=== PATIENT | female | born 1950 | race Caucasian/White ===

== ENCOUNTER → 2017-10-24 12:21 | Outpatient (CLI) | payer MEDICARE, MEDICAID, SELFPAY ==
--- NOTE | 2017-10-24 13:00 | MRI_ITS ---
STUDY: MRI LUMBAR SPINE WITH AND WITHOUT CONTRAST REASON FOR EXAM: Female, 67 years old. stenosis, lbp, left buttocks pain, prior microdisectomy. TECHNIQUE: Standardized fat and water weighted pulse sequences were obtained in the sagittal and axial planes. 10 ml of Gadavist contrast material was administered for the contrast portion of the examination. COMPARISON: February 25, 2010 FINDINGS: T12-L1: There is mild disc space narrowing and endplate spondylosis. There is no significant disc herniation, spinal canal or foramina stenosis.. Normal lumbar lordosis. There is no substantial scoliosis. Normal conus medullaris that terminates at the L1/L2 L1-2: There is mild disc space narrowing and endplate spondylosis. There is no significant disc herniation, spinal canal or foramina stenosis.. L2-3: There is mild disc space narrowing and endplate spondylosis. There is a mild disc bulge and facet arthropathy with mild central canal and mild bilateral foraminal stenosis. L3-4: There is a moderate disc space narrowing and endplate spondylosis. There is moderate disc osteophyte complex asymmetric to the left with moderate left foraminal stenosis. There is facet arthropathy with mild central canal stenosis. There is mild right foraminal stenosis. Findings are slightly increased since the prior examination L4-5: There is moderate disc space narrowing and endplate spondylosis. There is a moderate disc osteophyte complex and facet arthropathy with mild central canal, mild right and moderate left foraminal stenosis. There is a decompression laminectomy with improved central canal patency. L5-S1: There is moderate disc space narrowing and endplate spondylosis. There is a moderate disc osteophyte complex and facet arthropathy with mild central canal stenosis. There is mild bilateral foraminal stenosis. There is a left hemilaminotomy and epidural fibrosis. There is new superiorly directed left paracentral disc extrusion (0.8 x 0.8 x 1.6 cm) with severe left lateral recess narrowing MRI/Spine Lumbar W/WO Contrast IMPRESSION: L3/L4: Moderate left foraminal stenosis. L4/L5: Moderate left foraminal stenosis. Decompression laminectomy. L5/S1: Left paracentral extrusion with severe left lateral recess narrowing. Postoperative changes. Electronically Signed: Jose Scott MD at 14:01 EDT Tel , Service support ,
== END ==
PROVIDERS: Family Provider Family Medicine; PCP Family Medicine; Visit Provider Nurse Practitioner Acute Care
DX: M48.062 Spinal stenosis, lumbar region with neurogenic claudication (principal); Z98.1 Arthrodesis status
CPT/HCPCS: 72158; A9585

== ENCOUNTER → 2018-01-19 13:42 | Outpatient (CLI) | payer MEDICARE, SELFPAY ==
--- NOTE | 2018-01-19 13:47 | ECHOL_ITS ---
Version 2 Reason For Study: Pericardial Effusion Procedure This was a limited 2D transthoracic echocardiogram. Exam performed in department. Left Ventricle Normal LV size. Left ventricular systolic function is normal. The estimated ejection fraction is 55 %. No regional wall motion abnormalities noted. Atria Normal left atrium. Mitral Valve Normal mitral valve. Pericardium/Pleural Small pericardial effusion. MMode/2D Measurements & Calculations LVIDd: 4.4 cm IVSd: 1.0 cm LVAd ap4: 25.4 cm2 LVIDs: 3.5 cm LVPWd: 0.92 cm EDV(MOD-sp4): 76.4 ml FS: 19.6 % EDV(sp4-el): 79.1 ml LVAs ap4: 17.0 cm2 ESV(MOD-sp4): 37.5 ml ESV(sp4-el): 39.4 ml EF(MOD-sp4): 50.9 % EF(sp4-el): 50.2 % SV(MOD-sp4): 38.8 ml SV(sp4-el): 39.7 ml Interpretation Summary Normal LV size. Left ventricular systolic function is normal. The estimated ejection fraction is 55 %. Small pericardial effusion. Compared to the previous the effusion is less. No tamponade noted Ordering Physician: Lázaro Yee Referring Physician: Lázaro Yee Performed By: Lucio Day RCS
== END ==
PROVIDERS: Family Provider Family Medicine; PCP Family Medicine
DX: I31.3 Pericardial effusion (noninflammatory) (principal)
CPT/HCPCS: 93308

== ENCOUNTER → 2018-11-12 13:41 | Outpatient (CLI) | payer MEDICARE, SELFPAY ==
--- NOTE | 2018-11-12 13:47 | BI_ITS ---
MAMMOGRAPHY - BILATERAL SCREENING 3-D TOMOSYNTHESIS REASON FOR EXAM: Female, 68 years old. Bilateral Screening 3-D tomosynthesis PERTINENT HISTORY: 30 pound weight gain since last exam. No significant family history.. TECHNIQUE: 2-D mammograms and 3-D Tomosynthesis of the breast (s) were performed. CAD was performed. COMPARISON: October 25, 2016. FINDINGS: The breast composition is almost entirely fat. Scattered benign calcifications are seen. No dense spiculated masses or suspicious microcalcifications are identified. No architectural distortion is identified. There is no skin thickening or retraction. There are a few, scattered, typically benign appearing calcifications. There is a 8 mm, reniform, well-circumscribed nodule within the very deep upper left breast seen only on the MLO views. This finding demonstrates a lucent/fatty hilum. This finding is therefore most compatible with a typically benign appearing intramammary lymph node. There has been no significant change since the prior study. BI/SCREENING MAMM (CAD), BILAT IMPRESSION: No mammographic signs of malignancy. Routine yearly mammograms recommended. ASSESSMENT CATEGORY: BIRADS Category 2: Benign. A letter regarding these results will be sent to the patient by the facility within 30 days. FOLLOW UP RECOMMENDATION: Yearly follow up mammogram recommended. (A) Approximately 10% of breast cancers are not detected by mammography. A normal mammogram should not delay biopsy of a clinically suspicious abnormality. Electronically Signed: Jj Sanchez MD at 16:09 EDT , Service support ,
== END ==
PROVIDERS: Family Provider Family Medicine; PCP Family Medicine; Referring Provider Family Medicine; Visit Provider Family Medicine
DX: Z12.31 Encounter for screening mammogram for malignant neoplasm of breast (principal)
CPT/HCPCS: 77063; 77067

== ENCOUNTER → 2019-01-22 10:34 | Outpatient (CLI) | payer MEDICARE, SELFPAY ==
--- NOTE | 2019-01-22 10:42 | MRI_ITS ---
HISTORY: HNP, LOW BACK PAIN X 3 YRS, H/O PRIOR LAMINECTOMY AND FUSION EXAM/TECHNIQUE: MR Spine Lumbar W/O Contrast: 1.5 Gianna. Multiplanar, multisequence. COMPARISON: 10/24/17 MRI lumbar spine. FINDINGS: # of images incl. paperwork: 131 Alignment anatomic. No fracture or acute signal changes in the vertebrae. Status post interval posterior fusion at L4-5 and L5-S1. Laminectomies at these levels again demonstrated. Conus terminates at the level of the L2 upper endplate with normal contour and signal. Thecal sac terminates at the level of the inferior aspect of S1. Disc degeneration from L3-S1 again demonstrated with mild degenerative endplate irregularity and signal changes. At L1-2 there is no significant narrowing. At L2-3, prominent epidural fat and moderate bilateral facet degeneration cause only mild narrowing of the spinal canal and bilateral foramina. At L3-4, vertebral body osteophytes and small diffuse disc bulge cause mild narrowing of the right foramen. No significant narrowing of the spinal canal or left foramen. At L4-5, the spinal canal is decompressed via laminectomy. No significant foraminal narrowing. At L5-S1, left paracentral vertebral body osteophyte mildly narrows the left subarticular zone, abutting the traversing left S1 nerve root. Only mild bilateral foraminal narrowing. The left-sided disc extrusion seen at this level on the previous study is no longer evident and has either been reabsorbed or resected. MRI/Spine Lumbar (Routine) IMPRESSION: Degenerative and postoperative changes as above. No high-grade narrowing or definite etiology for radiculopathy identified. The left-sided disc extrusion at L5-S1 is no longer evident, either resected or resorbed. at 1213 Reported and signed by: Rome Bocanegra MD Electronically Signed: Rome Bocanegra, at 12:12 EDT Tel , Service support ,
== END ==
PROVIDERS: Family Provider Family Medicine; PCP Family Medicine; Referring Provider Nurse Practitioner Acute Care; Visit Provider Nurse Practitioner Acute Care
DX: M51.26 Other intervertebral disc displacement, lumbar region (principal)
CPT/HCPCS: 72148

== ENCOUNTER → 2019-01-23 14:46 | Outpatient (CLI) | payer MEDICARE, SELFPAY ==
[2019-01-23 11:52] VITALS: BMI 40.9
[2019-01-23 15:41] LABS: Anion Gap 8 (5-15); BUN 10 mg/dL (7-18); BUN/Creat Ratio 9.2 RATIO (10-20); Calcium,Total 9.4 mg/dL (8.5-10.1); Chloride 106 mmol/L (98-107); Creatinine, Serum 1.09 mg/dL (0.55-1.02); EST Glomerular Filtration Rate 53 mL/min (>60); Est Glom Filt Rate - Afr Amer 65 mL/min (>60); Glucose 101 mg/dL (74-106); Sodium Level 143 mmol/L (136-145); T4 Total, Thyroxin 6.5 ug/dL (4.8-13.9); Thyroid Stim Hormone (TSH) 1.01 uIU/mL (0.358-3.74)
== END ==
PROVIDERS: Family Provider Family Medicine; PCP Family Medicine; Referring Provider Internal Medicine Cardiovascular Disease; Visit Provider Internal Medicine Cardiovascular Disease
DX: I31.3 Pericardial effusion (noninflammatory) (principal)
CPT/HCPCS: 36415; 80048; 84436; 84443

== ENCOUNTER → 2019-02-26 12:46 | Outpatient (CLI) | payer MEDICARE, SELFPAY ==
[2019-01-23 11:52] VITALS: BMI 40.9
--- NOTE | 2019-02-26 12:47 | ECHOCS_ITS ---
Reason For Study: PERICARDIAL EFFUSION Procedure This was a 2D Doppler, Color Flow transthoracic echocardiogram. The study was technically difficult. Contrast injection was performed. Exam performed in department. Left Ventricle Normal LV size. Left ventricular systolic function is normal. The estimated ejection fraction is 65 %. Stage 1 diastolic dysfunction. No regional wall motion abnormalities noted. Right Ventricle Normal RV size. Normal systolic function. Atria Normal left atrium. Normal right atrium. Mitral Valve Normal mitral valve. Tricuspid Valve Normal tricuspid valve. Aortic Valve Normal aortic valve. Pulmonic Valve The pulmonic valve is not well visualized. Great Vessels Normal aortic root. The pulmonary artery is normal size. Normal inferior vena cava. Pericardium/Pleural No pericardial effusion. Medication 22 gauge I.V. with prn adaptor inserted into right arm. Diluted definity 2ml given slow IV push to enhance endocardial definition. MMode/2D Measurements & Calculations LVIDd: 4.1 cm IVSd: 1.1 cm Ao root diam: 3.1 cm LVIDs: 2.9 cm LVPWd: 1.0 cm RVDd: 2.5 cm FS: 28.4 % LAV(MOD-bp): 42.9 ml LVAd ap4: 26.4 cm2 SV(MOD-sp4): 45.2 ml LAV(MOD-bp) Indexed: 20.5 ml/m2 EDV(MOD-sp4): 75.5 ml LAV(MOD-sp2): 50.6 ml EDV(sp4-el): 78.7 ml LAV(MOD-sp4): 37.2 ml LVAs ap4: 15.3 cm2 ESV(MOD-sp4): 30.3 ml ESV(sp4-el): 31.8 ml EF(MOD-sp4): 59.9 % EF(sp4-el): 59.5 % SV(sp4-el): 46.8 ml LA A4 area: 16.1 cm2 LA dimension(2D): 3.8 cm RA A4 area: 13.7 cm2 Time Measurements MV dec time: 0.20 sec Doppler Measurements & Calculations MV E max martin: 98.9 cm/sec Lat Peak E' Martin: 6.3 cm/sec Med Peak E' Martin: 6.6 cm/sec MV A max martin: 114.0 cm/sec E/E' lat: 15.8 E/E' med: 15.0 MV E/A: 0.87 Ao V2 max: 146.2 cm/sec LV V1 max: 92.9 cm/sec PA V2 max: 78.8 cm/sec Ao max P.6 mmHg LV V1 max P.5 mmHg TR max martin: 260.7 cm/sec TR max P.2 mmHg Interpretation Summary Normal LV size. Left ventricular systolic function is normal. The estimated ejection fraction is 65 %. Stage 1 diastolic dysfunction. Structurally normal valves. Contrast injection was performed. Ordering Physician: Cornelius Santos Referring Physician: DANIKA PEÑA Performed By: Nadia Munoz, SLOANE, RVT
== END ==
PROVIDERS: Family Provider Family Medicine; PCP Family Medicine; Referring Provider Internal Medicine Cardiovascular Disease; Visit Provider Internal Medicine Cardiovascular Disease
DX: I31.3 Pericardial effusion (noninflammatory) (principal)
CPT/HCPCS: 93306; Q9957; A4216; C8929

== ENCOUNTER → 2019-09-10 06:05 | Outpatient (CLI) | payer MEDICARE, MEDICAID, SELFPAY ==
[2019-01-23 11:52] VITALS: BMI 40.9
--- NOTE | 2019-09-10 18:42 | STRESSREP ---
Stress Test Report Date: 09-10-2019 Procedure: Pharmacologic stress nuclear imaging study Indications: Shortness of breath/dyspnea; preoperative cardiovascular evaluation Consent: Per the patient Procedure: The patient underwent pharmacologic (Regadenoson) evaluation with a peak heart rate of 99 beats per minute (64 %predicted maximal heart rate) and a peak blood pressure of 122/84 mmHg. The baseline ECG demonstrated sinus rhythm. The peak pharmacologic ECG demonstrated no obvious ECG changes. There were no cardiac dysrhythmias pretest, during pharmacologic infusion, or recovery. There was no complaint of chest discomfort during pharmacologic infusion or recovery. The examination was discontinued secondary to completion of protocol. Impression: 1. Pharmacologic (Regadenoson) evaluation 2. Peak pharmacologic ECG with no obvious ECG changes. 3. There were no cardiac dysrhythmias pretest, during pharmacologic infusion, or recovery. 4. Nuclear images pending Myocardial perfusion imaging study: Technique: The patient was injected with 14.8 millicuries of technetium 99m Cardiolite and subsequently rest SPECT Cardiolite nuclear imaging was obtained in the horizontal long, vertical long, and short axis views. The patient underwent pharmacologic (Regadenoson) evaluation with a peak heart rate of 99 beats per minute (64 % percent predicted maximal heart rate) and a peak blood pressure of 122/84 mmHg. The patient was injected with 44.5 millicuries of technetium 99m Cardiolite and subsequently stress SPECT Cardiolite nuclear imaging was obtained in the horizontal long, vertical long, and short axis views. A gated Cardiolite study at peak stress was obtained. Interpretation: Rest and stress SPECT Cardiolite nuclear imaging status post realignment, normalization, and attenuation correction demonstrate relative uniform tracer uptake and myocardial perfusion appearing within normal limits. There is end systolic thickening and brightening. The gated Cardiolite study demonstrates myocardial thickening and inward wall motion. The reported LVEF is 80 %. Impression: 1. Rest and stress SPECT Cardiolite nuclear imaging demonstrate relative uniform tracer uptake and myocardial perfusion appearing within normal limits. 2. The gated Cardiolite study reports an LVEF of 80 %. This note was generated with [employer] software. It may contain incorrect words, spelling, and punctuation that were not noted in checking the note before signing.
== END ==
PROVIDERS: PCP Student in an Organized Health Care Education/Training Program; Referring Provider Student in an Organized Health Care Education/Training Program; Visit Provider Student in an Organized Health Care Education/Training Program
DX: R06.09 Other forms of dyspnea (principal)
CPT/HCPCS: 78452; 93017; A9500; A4216; J2785

== ENCOUNTER → 2019-11-22 12:44 | Outpatient (CLI) | payer MEDICARE, MEDICAID, SELFPAY ==
[2019-01-23 11:52] VITALS: BMI 40.9
--- NOTE | 2019-11-22 12:51 | ART_ITS ---
Reason For Study: Muscle spasms/cramps Procedure A bilateral lower extremity continuous wave Doppler with analog waveform analysis and ankle brachial indexes. Left Segmental Pressures Left brachial= 152mmHg. Left posterior tibial artery = 154mmHg. Left dorsalis pedis artery = 151mmHg. Left digit = 76 mmHg. The left dorsalis pedis waveforms are triphasic. The left posterior tibial artery waveforms are triphasic. Right Segmental Pressures Right brachial= 143mmHg. Right posterior tibial artery = 176mmHg. Right dorsalis pedis artery = 165mmHg. Right digit = 75 mmHg. The right dorsalis pedis waveforms are triphasic. The right posterior tibial artery waveforms are triphasic. Indices The right ankle brachial index by the dorsalis pedis is 1.09. The right ankle brachial index by the posterior tibial artery is 1.16. The right digital-brachial index is 0.49. The left ankle brachial index by the dorsalis pedis is 0.99. The left ankle brachial index by the posterior tibial artery is 1.01. The left digital-brachial index is 0.50. Interpretation Summary Triphasic Doppler waveforms are noted at ankle level bilaterally. Pulse-volume recording waveform amplitudes are satisfactory at ankle level bilaterally, but diminished at digital level bilaterally. Resting ankle-brachial indices are normal bilaterally. Digital-brachial indices are mildly/moderately diminished bilaterally. Arterial flow appears to be normal at ankle level bilaterally. There is evidence of mild/moderate distal, small-vessel arterial occlusive disease at digital level bilaterally. Ordering Physician: Rich Robles Referring Physician: Rich Robles Performed By: Harriet Freedman RVT
== END ==
PROVIDERS: PCP Student in an Organized Health Care Education/Training Program; Referring Provider Student in an Organized Health Care Education/Training Program; Visit Provider Student in an Organized Health Care Education/Training Program
DX: I77.1 Stricture of artery (principal); R25.2 Cramp and spasm
CPT/HCPCS: 93922

== ENCOUNTER → 2020-04-07 12:48 | Outpatient (CLI) | payer MEDICARE, MEDICAID, SELFPAY ==
[2020-03-26 14:54] VITALS: BMI 39.6
--- NOTE | 2020-04-07 12:49 | ECHOL_ITS ---
Reason For Study: SOB, Hx of Pericardial effusion Procedure This was a limited 2D transthoracic echocardiogram. Exam performed in department. Left Ventricle Normal LV size. Left ventricular systolic function is normal. The estimated ejection fraction is 55 %. No regional wall motion abnormalities noted. Right Ventricle Normal RV size. Normal systolic function. Great Vessels Normal aortic root. Pericardium/Pleural No pericardial effusion. Epicardial fat. MMode/2D Measurements & Calculations LVIDd: 4.6 cm IVSd: 1.00 cm Ao root diam: 3.0 cm LVIDs: 2.6 cm LVPWd: 0.86 cm FS: 43.2 % LA dimension(2D): 2.1 cm Interpretation Summary Normal LV size. Left ventricular systolic function is normal. The estimated ejection fraction is 55 %. No pericardial effusion. Epicardial fat. Ordering Physician: Luis Fox/Cornelius Santos Referring Physician: Rich Robles Performed By: Cheryl Ozuna RDCS
== END ==
PROVIDERS: PCP Student in an Organized Health Care Education/Training Program; Referring Provider Nurse Practitioner Family; Visit Provider Nurse Practitioner Family
DX: I31.3 Pericardial effusion (noninflammatory) (principal); I31.9 Disease of pericardium, unspecified; R06.00 Dyspnea, unspecified
CPT/HCPCS: 93308

== ENCOUNTER → 2020-09-08 14:06 | Outpatient (CLI) | payer MEDICARE, MEDICAID, SELFPAY ==
[2020-03-26 14:54] VITALS: BMI 39.6
--- NOTE | 2020-09-08 14:08 | BI_ITS ---
MAMMOGRAPHY - BILATERAL SCREENING REASON FOR EXAM: Female, 69 years old. Routine annual screening examination. PERTINENT HISTORY: Non-contributory. TECHNIQUE: Digital bilateral breast traci (3D mammographic acquisition) in the CC and MLO projections. 2-D mediolateral oblique (MLO) and craniocaudad (CC) views of both breasts were obtained. CAD: Full Field Digital Mammography with Computer Added Detection was performed. COMPARISON: Comparison is made with prior study dated 11/12/2018 and 10/25/2016. FINDINGS: Breast Composition: The breasts are almost entirely fatty. There are no dominant masses or suspicious calcifications. Stable small benign appearing bilateral axillary lymph nodes. No other significant abnormalities are identified. There has been no significant change since the prior study. BI/SCRN MAMM (CAD)W/TRACI BILAT IMPRESSION: Stable bilateral screening mammogram. Yearly follow-up mammogram recommended. (A) ASSESSMENT CATEGORY: BIRADS Category 2: Benign. A letter regarding these results will be sent to the patient by the facility within 30 days. Approximately 10% of breast cancers are not detected by mammography. A normal mammogram should not delay biopsy of a clinically suspicious abnormality. [id number] Electronically Signed: Giancarlo Ramos MD at 15:18 EST , Service support ,
== END ==
PROVIDERS: PCP Student in an Organized Health Care Education/Training Program; Referring Provider Student in an Organized Health Care Education/Training Program; Visit Provider Student in an Organized Health Care Education/Training Program
DX: Z12.31 Encounter for screening mammogram for malignant neoplasm of breast (principal)
CPT/HCPCS: 77063; 77067

== ENCOUNTER 2021-01-21 11:00 | Outpatient (RCR) | payer MEDICARE, MEDICAID, SELFPAY ==
[2020-03-26 14:54] VITALS: BMI 39.6
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
== END 2021-01-21 19:00 | disposition home or self-care (01) ==
LOC: PT 11:00
PROVIDERS: PCP Student in an Organized Health Care Education/Training Program; Referring Provider Nurse Practitioner Acute Care; Visit Provider Nurse Practitioner Acute Care
DX: M51.36 Other intervertebral disc degeneration, lumbar region (principal); Z98.1 Arthrodesis status
CPT/HCPCS: 97110; 97112; 97162; 97164; 97530

== ENCOUNTER → 2021-02-09 12:31 | Outpatient (CLI) | payer MEDICARE, MEDICAID, SELFPAY ==
[2020-03-26 14:54] VITALS: BMI 39.6
--- NOTE | 2021-02-09 12:36 | MRI_ITS ---
EXAM DESCRIPTION: MRI of the lumbar spine without contrast CLINICAL HISTORY: 70 years Female, LUMBAR STENOSIS W/ NEUROGENIC CLAUDICATION COMPARISON: Previous MRI of the lumbar spine obtained on 01/22/2019 TECHNIQUE: MRI lumbar spine was performed utilizing T1 and fast spin-echo T2-weighted and STIR weighted sagittal images followed by angled axial T1 and T2-weighted images obtained from above the L1-L2 intervertebral disc space level down to the L5-S1 level. FINDINGS: L1-L2: Mild diffusely bulging disc is noted this location with no evidence of disc herniation or spinal stenosis.. Very mild subforaminal stenosis is noted this level bilaterally but this is not compressing the L1 nerve roots as the exit the L1-2 neural foramina. L2-L3: The patient has had a lumbar laminectomy at this level and there is some epidural fibrosis with enhancement along the anterior aspect of the mildly bulging disc, at this level. No disc herniation is seen. The previously noted central spinal stenosis is no longer identified. Mild bifrontal some foraminal stenosis is seen at this level without evidence of compression of the L2 nerve roots as the exit the L2-3 neural foramina. L3-L4: The patient has had a lumbar laminectomy at this level there is very minimal diffusely bulging disc. No evidence of central spinal stenosis is seen, but moderate biforaminal subforaminal neural foraminal narrowing is identified causing moderate narrowing of the neural foramina at this level bilaterally, with some questionable effacement of the exiting L3 nerve roots. This has not significantly changed when compared with previous study. L4-L5: A mild diffusely bulging disc are noted at this location causing mild relative central spinal stenosis. This was noted previously and is unchanged. Mild bilateral central foraminal stenosis is identified which does not appear to be compressing the L4 nerve roots as they exit the L4-5 neural foramina. L5-S1: There is a mild diffusely bulging noted at this location with a paracentral disc spur complex noted on the left causing some minimal compression of the anterior aspect of the left lumbar subarachnoid space. This was previously identified and is unchanged in this patient who has had a lumbar laminectomy at the L5-S1 level. No central spinal stenosis is seen.. The neural foramina are noted at this level and although mild central foraminal stenosis is seen no compression of the exiting L5 nerve roots is seen. Conus medullaris and lumbar nerve roots: The conus medullaris ends at the L1 level and appears to be normal. The lumbar nerve roots appear to be normal. Lumbar spine: The lumbar spine shows paired pedicle screws in L4, L5, and S1. The patient''s had a more recent lumbar laminectomy at the L2-3 level, with a normal bladder laminectomy at the L4-5 and L5-S1 level. The bone marrow of the lumbar vertebral bodies appears to be normal. No vertebral body compression fractures are seen. MRI/Spine Lumbar W/WO Contrast IMPRESSION: 1.Status post more recent lumbar laminectomy at the L2-3 level with no lumbar laminectomy at the L4-5 and L5-S1 levels and spinal fusion from levels L4-S1. 2. There is no epidural fibrosis and enhancement involving the anterior aspect of the L3-4 intervertebral disc space, with no evidence of recurrent disc herniation or spinal stenosis. 3. There has been a posterior spinal fusion extending from level of the L4-S1. 4. Mild diffusely bulging disc is seen at the L4-5 level causing mild central spinal stenosis and the degree of central spinal stenosis is unchanged. 5.A disc spur complex is again seen at the L5-S1 level off centered toward the left. This is not causing significant compression of the lumbar subarachnoid space and is unchanged from the previous MRI. Electronically Signed: Luis Kelly DO at 10:04 EDT Tel , Service support ,
== END ==
PROVIDERS: PCP Student in an Organized Health Care Education/Training Program; Referring Provider Nurse Practitioner Acute Care; Visit Provider Nurse Practitioner Acute Care
DX: M48.062 Spinal stenosis, lumbar region with neurogenic claudication (principal); M51.26 Other intervertebral disc displacement, lumbar region; Z98.1 Arthrodesis status
CPT/HCPCS: 72158; A9575

== ENCOUNTER → 2021-03-20 07:13 | Outpatient (CLI) | payer MEDICARE, MEDICAID, SELFPAY ==
[2020-03-26 14:54] VITALS: BMI 39.6
--- NOTE | 2021-03-20 07:30 | MRI_ITS ---
STUDY: MRI CERVICAL SPINE WITHOUT CONTRAST REASON FOR EXAM: Female, 70 years old. S/P CERVICAL SPINAL FUSION, neck pain, left arm n/t TECHNIQUE: Standardized fat and water weighted pulse sequences were obtained in the sagittal and axial planes. COMPARISON: 12/12/2016 FINDINGS: Normal foramen magnum and brainstem-cervical cord junction. Normal cervical lordosis. C2-3: There is minimal disc space narrowing and endplate spondylosis. There is no significant disc herniation, central canal or foraminal stenosis. C3-4: There is anterior fusion. Mild disc osteophyte complex and dorsal ligamentous buckling with moderate central canal stenosis. Uncovertebral and facet arthropathy with moderate right and moderate left foraminal stenosis. Findings are stable since the prior examination. C4-5: There is anterior fusion. Mild disc osteophyte complex with mild central canal stenosis. Uncovertebral and facet arthropathy with moderate right and severe left foraminal stenosis. Findings are stable since the prior examination. C5-6: There is mild disc space narrowing and endplates spondylosis. Mild disc osteophyte complex with moderate central canal stenosis. Uncovertebral and facet arthropathy with mild right and mild left foraminal stenosis. Findings are stable since the prior examination C6-7: There is mild disc space narrowing and endplates spondylosis. Moderate disc osteophyte complex with moderate central canal stones. Uncovertebral and facet arthropathy with severe right and severe left foraminal stenosis. Findings are stable since the prior examination C7-T1: Normal endplates. Normal disc height, signal and morphology. Normal central canal and intervertebral neural foramina. Normal cervical cord. MRI/Spine Cervical (Routine) IMPRESSION: Stable moderate/severe multilevel degenerative changes. C3-C5:: Anterior fusion. Electronically Signed: Jose Scott MD at 12:53 EDT Tel , Service support ,
== END ==
PROVIDERS: PCP Student in an Organized Health Care Education/Training Program; Referring Provider Orthopaedic Surgery; Visit Provider Orthopaedic Surgery
DX: Z98.1 Arthrodesis status (principal); M47.812 Spondylosis without myelopathy or radiculopathy, cervical region; M48.02 Spinal stenosis, cervical region; M46.92 Unspecified inflammatory spondylopathy, cervical region; M25.78 Osteophyte, vertebrae
CPT/HCPCS: 72141

== ENCOUNTER 2021-10-20 13:45 | Outpatient (CLI) | payer MEDICARE, MEDICAID, SELFPAY ==
--- NOTE | 2021-10-20 13:56 | ART_ITS ---
Reason For Study: ATHEROSCLEROSIS W/CLAUDICATION Left Segmental Pressures Left brachial= 151mmHg. Left posterior tibial artery = 150mmHg. Left dorsalis pedis artery = 140mmHg. Left digit = 143 mmHg. The left posterior tibial artery waveforms are triphasic. The left dorsalis pedis waveforms are biphasic. Right Segmental Pressures Right brachial= 146mmHg. Right posterior tibial artery = 138mmHg. Right dorsalis pedis artery = 156mmHg. Right digit = 153 mmHg. The right posterior tibial artery waveforms are triphasic. The right dorsalis pedis waveforms are triphasic. Indices The right resting ankle brachial index is 1.03. The right ankle brachial index by the posterior tibial artery is 0.91. The right ankle brachial index by the dorsalis pedis is 1.03. The right digital-brachial index is 1.01. The left resting ankle brachial index is 0.99. The left ankle brachial index by the posterior tibial artery is 0.99. The left ankle brachial index by the dorsalis pedis is 0.93. The left digital-brachial index is 0.95. VL/Ankle Brachial Index Interpretation Summary Bilateral lower extremities no evidence of significant occlusive disease at res t with bilateral triphasic flow and an MANISH 1.03 and 0.99. Ordering Physician: Roni Gamez Referring Physician: Rich Robles Performed By: Jacque Cruz Mattie, RDCS
== END 2021-10-20 23:59 | disposition home or self-care (01) ==
PROVIDERS: PCP Student in an Organized Health Care Education/Training Program; Referring Provider Surgery Vascular Surgery; Visit Provider Surgery Vascular Surgery
DX: I70.213 Atherosclerosis of native arteries of extremities with intermittent claudication, bilateral legs (principal)
CPT/HCPCS: 93922

== ENCOUNTER → 2022-04-14 | Outpatient (CLI) | payer MEDICARE, MEDICAID, SELFPAY ==
--- NOTE | 2022-04-14 14:50 | CT_ITS ---
STUDY: CT LUMBAR SPINE WITHOUT CONTRAST REASON FOR EXAM: Female, 71 years old patient is status post lumbar fusion. RADIATION DOSAGE (If Supplied By Facility): CTDIvol = ( 51.49 ) mGy, DLP = ( 1329.69 ) mGycm TECHNIQUE: The patient was scanned in a multi detector CT scanner. High resolution transaxial imaging was performed. Images were obtained from T12 to sacrum. Sagittal and coronal images were reconstructed. Individualized dose optimization techniques were used for this CT. COMPARISON: MRI lumbar spine dated the 01/22/2019. FINDINGS: Normal lumbar lordosis. There is no substantial scoliosis. The patient has had a surgical fusion of the L4, L5 and S1 vertebral segments with interpedicular screws and rods. Patient has had laminectomies of L5. Imaged thoracic and lumbar vertebral bodies have normal height and alignment. L1-2: There is mild annular disk bulge and osteophyte complex. There is mild degenerative arthropathy of the facet joints. Bilateral neuroforamina are narrowed. There is no appreciable acquired central canal stenosis. L2-3: There is a vacuum disc phenomenon. There is moderate annular disc bulge and osteophyte complex. There is moderately severe central acquired canal stenosis. There is thickening of ligamentum flavum. Neural foramina are severely narrowed. L3-4: There is narrowing of the disc space with endplate osteophytes. There is vacuum disc phenomenon. There is moderate annular disc bulge and osteophyte complex. The patient appears to have had laminectomies of L3. There is moderately severe degenerative arthropathy of facet joints. Neural foramina are severely narrowed. There has been surgical resection of spinous processes of L3 and L4.. L4-5: There is narrowing of the disc space with vacuum disc phenomenon. There is moderately severe annular disc bulge and osteophyte complex. There is mild central acquired canal stenosis. Neural foramina are severely narrowed. There is moderately severe degenerative arthropathy of the facet joints. L5-S1: There is narrowing of disc space with endplate osteophytes. There is moderate degenerative probably the facet joints. Neuroforamina are narrowed. Normal visualized paraspinous soft tissue structures. There is atherosclerotic calcification of the abdominal aorta and iliac arteries. CT/Spine Lumbar without Contrast IMPRESSION: 1. Postoperative changes of the lumbar spine. 2. Moderately severe multilevel degenerative changes of the lumbar spine as described. Electronically Signed: Tammy Alvarenga MD at 6:32 EDT ,
--- NOTE | 2022-04-14 15:15 | MRI_ITS ---
STUDY: MRI LUMBAR SPINE WITH AND WITHOUT CONTRAST REASON FOR EXAM: Female, 71 years old patient is status post lumbar fusion. TECHNIQUE: Standardized fat and water weighted pulse sequences were obtained in the sagittal and axial planes. 22 ml of IV Clariscan was administered for the contrast portion of the examination. COMPARISON: CT of the lumbar spine dated 04/14/2022 and MR of the lumbar spine dated January 22, 2019. FINDINGS: T12-L1: There is mild annular disk bulge and osteophyte complex. There is mild degenerative arthropathy of the facet joints. Bilateral neuroforamina are narrowed without MR evidence for nerve impingement. There is no appreciable acquired central canal stenosis. Normal lumbar lordosis. There is no substantial scoliosis. Normal conus medullaris that terminates at the L1-L2 level. Patient has had surgical fusion of L4, L5 and S1 vertebral segments with interpedicular screws and rods. L1-2: There is mild annular disk bulge and osteophyte complex. There is mild degenerative arthropathy of the facet joints. Bilateral neuroforamina are narrowed without MR evidence for nerve impingement. There is no appreciable acquired central canal stenosis. L2-3: Moderately large annular disc bulge and osteophyte complex is present. The neural foramina are severely narrowed with potential impingement of the left L2 nerve root at the neuroforamen. There is moderately severe degenerative arthropathy of the facet joints. There is moderate central acquired canal stenosis. There is abnormal signal of the endplates of L2 and L3 suggesting sequela of acute Modic change. This is new since the previous study. L3-4: There is moderately large annular disk bulge and osteophyte complex. There is moderately severe degenerative arthropathy of the facet joints. Bilateral neuroforamina are narrowed with MR evidence for potential L3 nerve impingement. There is no appreciable acquired central canal stenosis. L4-5: There is narrowing of the disc. There is moderate annular disc bulge and osteophyte complex. Neural foramina bilaterally narrowed without evidence of nerve impingement. There is moderate central canal stenosis. L5-S1: There appears to be a focal left central disc protrusion and osteophyte complex with possible potential left S1 nerve root at the lateral recess. Neuroforamina are narrowed with evidence for potential right-sided L5 nerve impingement. Normal visualized sacral ala. There is a severe atrophy of the muscle at the sacrum. There is mild paraspinal muscular atrophy, otherwise. There is mild abnormal enhancement of the endplates of L2 and L3 consistent with ecchymotic changes. MRI/Spine Lumbar W/WO Contrast IMPRESSION: 1. Multilevel degenerative changes of the lumbar spine with neuroforaminal narrowing or central canal stenosis with potential nerve root impingement, as described. 2. Status post surgical fusion of L4, L5 and S1 vertebral segments similar to previous MRI. 3. Acute Modic changes at L2-3 could be acutely symptomatic. Electronically Signed: Tammy Alvarenga MD at 7:07 EDT ,
[2022-04-14 15:45] LABS: CREATININE FINGERSTICK < 0.9 mg/dL (0.55-1.02); EGFR FINGERSTICK > 60.0000 mL/min (>60)
== END | disposition home or self-care (01) ==
PROVIDERS: PCP Student in an Organized Health Care Education/Training Program; Referring Provider Nurse Practitioner Acute Care; Visit Provider Nurse Practitioner Acute Care
DX: M51.36 Other intervertebral disc degeneration, lumbar region (principal); M48.061 Spinal stenosis, lumbar region without neurogenic claudication; Z98.1 Arthrodesis status
CPT/HCPCS: 72131; 72158; A9575

== ENCOUNTER → 2022-10-25 | Outpatient (CLI) | payer MEDICARE, MEDICAID, SELFPAY ==
--- NOTE | 2022-10-25 13:02 | ART_ITS ---
Reason For Study: atherosclerosis Procedure A bilateral lower extremity continuous wave Doppler with analog waveform analysis and ankle brachial indexes. Left Segmental Pressures Left brachial= 133mmHg. Left posterior tibial artery = 133mmHg. Left dorsalis pedis artery = 135mmHg. Left digit = 108 mmHg. The left dorsalis pedis waveforms are triphasic. The left posterior tibial artery waveforms are triphasic. Right Segmental Pressures Right brachial= 117mmHg. Right posterior tibial artery = 154mmHg. Right dorsalis pedis artery = 152mmHg. Right digit = 97 mmHg. The right dorsalis pedis waveforms are triphasic. The right posterior tibial artery waveforms are triphasic. Indices The right ankle brachial index by the posterior tibial artery is 1.16. The right ankle brachial index by the dorsalis pedis is 1.14. The right digital-brachial index is .73. The left ankle brachial index by the posterior tibial artery is 1.0. The left ankle brachial index by the dorsalis pedis is 1.02. The left digital-brachial index is .81. VL/Ankle Brachial Index Interpretation Summary Bilateral normal with triphassic flow and MANISH 1.16 and 1.02. DBI 0.73 and 0.81. Ordering Physician: Roni Gamez Performed By: Gio Banks RVT
== END | disposition home or self-care (01) ==
PROVIDERS: PCP Student in an Organized Health Care Education/Training Program; Referring Provider Surgery Vascular Surgery; Visit Provider Surgery Vascular Surgery
DX: I70.213 Atherosclerosis of native arteries of extremities with intermittent claudication, bilateral legs (principal)
CPT/HCPCS: 93922

== ENCOUNTER → 2023-12-08 | Outpatient (CLI) | payer MEDICARE, MEDICAID, SELFPAY ==
--- NOTE | 2023-12-08 14:43 | ART_ITS ---
Reason For Study: Atherosclerosis with claudication Procedure A bilateral lower extremity continuous wave Doppler with analog waveform analysis and ankle brachial indexes. Left Segmental Pressures Left brachial= 157mmHg. Left posterior tibial artery = 147mmHg. Left dorsalis pedis artery = 139mmHg. Left digit = 91 mmHg. The left dorsalis pedis waveforms are triphasic. The left posterior tibial artery waveforms are triphasic. Right Segmental Pressures Right brachial= 148mmHg. Right posterior tibial artery = 165mmHg. Right dorsalis pedis artery = 165mmHg. Right digit = 96 mmHg. The right dorsalis pedis waveforms are triphasic. The right posterior tibial artery waveforms are triphasic. Indices The right ankle brachial index by the dorsalis pedis is 0.98. The right ankle brachial index by the posterior tibial artery is 1.05. The right digital-brachial index is 0.61. The left ankle brachial index by the dorsalis pedis is 0.89. The left ankle brachial index by the posterior tibial artery is 0.94. The left digital-brachial index is 0.58. VL/Ankle Brachial Index Interpretation Summary Bilateral normal at rest and triphasic and MANISH 1.05 and 0.94. Digits 0.61 and 0 .58. Ordering Physician: Roni Gamez Referring Physician: Rich Robles Performed By: Harriet Freedman RVT and Student
== END | disposition home or self-care (01) ==
LOC: CVS 14:42
PROVIDERS: PCP Student in an Organized Health Care Education/Training Program; Referring Provider Surgery Vascular Surgery; Visit Provider Surgery Vascular Surgery
DX: I70.213 Atherosclerosis of native arteries of extremities with intermittent claudication, bilateral legs (principal)
CPT/HCPCS: 93922